=== PATIENT | male | born 1960 | race Caucasian/White ===

== ENCOUNTER 2023-06-06 08:06 | Emergency (ER) | payer OTHER ==
[2023-06-06] MEDS ORDERED: MECLIZINE HCL 25 MG TABLET ONE (10:32)
[2023-06-06] MEDS: MECLIZINE HCL 12.5 MG TABLET PO ONE (10:34)
[2023-06-06] MEDS: IV NS 0.9% 1,000 ML BAG IV ONE (10:34)
[2023-06-06 10:49] LABS: MAGNESIUM 2.1 mg/dL (1.8-2.4)
[2023-06-06 10:53] LABS: BASOPHILS % (AUTO) 0.4 % (0.0-2.0); EOSINOPHILS % (AUTO) 0.4 % (0.0-6.0); HEMATOCRIT 46 % (39-51); HEMOGLOBIN 15.4 g/dL (13.5-17.5); INR 1.01 (0.91-1.10); LYMPHOCYTES # (AUTO) 1.1 K/uL (0.8-4.8); LYMPHOCYTES % (AUTO) 23.8 % (20.0-44.0); MEAN CORPUSCULAR HEMOGLOBIN 30 PG (26.0-33.0); MEAN CORPUSCULAR HGB CONC 34 g/dl (31.0-36.0); MEAN CORPUSCULAR VOLUME 90 fL (80-96); MONOCYTES # (AUTO) 0.3 K/uL (0.1-1.30); MONOCYTES % (AUTO) 6.2 % (2.0-12.0); NEUTROPHILS # (AUTO) 3.3 K/uL (1.8-8.9); NEUTROPHILS % (AUTO) 69.2 % (43.0-81.0); PARTIAL THROMBOPLASTIN TIME 30.2 SEC (24.3-34.3); PLATELET COUNT (AUTO) 207 K/uL (150-450); PROTHROMBIN TIME 10.7 SECS (9.2-11.1); RED BLOOD CELL COUNT(AUTO) 5.08 MIL/uL (4.5-6.0); RED CELL DISTRIBUTION WIDTH 13.7 % (11.5-15.0); WHITE BLOOD COUNT (AUTO) 4.8 K/uL (4.3-11.0)
[2023-06-06 10:54] LABS: CALCIUM, SERUM 9.2 mg/dL (8.5-10.1); CARBON DIOXIDE 29 mmol/L (21-32); CHLORIDE 107 mmol/L (98-107); CREATININE 0.8 mg/dL (0.6-1.3); GLUCOSE 98 mg/dL (74-106); POTASSIUM 4.3 mmol/L (3.5-5.1); SODIUM SERUM 141 mmol/L (136-145); UREA NITROGEN, BLOOD 15 mg/dL (7-18)
[2023-06-06 11:00] LABS: ALANINE AMINOTRANSFERASE 20 U/L (12-78); ALBUMIN 3.8 g/dL (3.4-5.0); ALKALINE PHOSPHATASE 85 U/L (46-116); ASPARTATE AMINOTRANSFERASE 16 U/L (15-37); BILIRUBIN,DIRECT 0.1 mg/dL (0.0-0.2); BILIRUBIN,TOTAL 0.4 mg/dL (0.2-1.0)
[2023-06-06 11:05] LABS: THYROID STIMULATING HORMONE 2.218 uIU/mL (0.358-3.74)
[2023-06-06 13:59] VITALS: BP 155/88; TEMP 98.5; O2SAT 98
== END 2023-06-06 14:00 | disposition home or self-care (01) ==
LOC: ER 08:13
DX: I10 Essential (primary) hypertension (principal); R53.83 Other fatigue; M79.10 Myalgia, unspecified site; Z20.822 Contact with and (suspected) exposure to COVID-19
CPT/HCPCS: 99284; 96360; 87426; 80061; 93005; 87804 ×2; 85025; 80048; 82550; 80076; 83735; 36415; 84443; 84484; 85730; J8597; J7030